=== PATIENT | female | born 1930 | race Caucasian/White ===

== ENCOUNTER 2016-06-19 23:41 | Emergency (ER) | payer MEDICARE, OTHER ==
[~2016-06-19] VITALS: Ht 167.6 cm; Wt 73.0 kg
[~2016-06-19 23:41] MED LIST: ALLP100T PO; AMLO10TA2 PO; ASPI-586 PO; ATOR10TA PO; BACI1TAB3 PO; CALC625T66 PO; CHOL500050 PO; ESCI5TAB PO; FEBU40TA PO; FENO145T2 PO; FLUT9.9S NS; FOLI1TAB6 PO; HYDR-3922 PO; INDO25CA PO; INUL1TAB3 PO; LVT.1T PO; OMEG-109 PO; OXYB10TA PO; VALS1TAB14 PO; VALS320T8 PO
--- OUTSIDE RECORDS SUMMARY | 2016-06-19 23:47 | XMS REPORT | Continuity of Care Document ---
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 Role Phone TITO FUENTES MD PCP Insurance Providers Payer Name Policy Number Subscriber Name Relationship s Medicare [id number] Melody Null 18 Self / Same As Patient For Life [id number] [place] 01 Advance Directives Directive Response Recorded Date/Time Advance Directives Yes 04/08/16 10:08pm Health Care Power of Composition Professor [facility] in [place]--Twila Malave 04/08 10:08pm Organ Donor No 04/08/16 10:08pm Resuscitation Status Full Code 04/08/16 10:08pm Chief Complaint and Reason for Visit Chief Complaint CHEST PAIN Reason for Visit Chest pain Hypertensive urgency Problems Active Problems Medical Problem Onset Date Status Chest pain Unknown Acute Headache Unknown Acute Hypertensive urgency Unknown Acute Medications Current Home Medications Medication Dose Units Route Directions Days/Qty Instructions Start Date Levothyroxine Sodium 100 Mcg 1 Each Oral Daily 12/22/12 Fenofibrate 145 Mg 1 Each Oral Daily 12/22/12 Escitalopram Oxalate 5 Mg 1 Each Oral Daily 12/22/12 Folic Acid/Mv,Fe,Other Min 1 Each 1 Each Oral 12/22/12 Oxybutynin Chloride 10 Mg 10 Mg Oral Daily 12/22/12 Febuxostat 40 Mg 40 Mg Oral Daily 04/08/16 Valsartan/Hydrochlorothiazide 1 Each 1 Each Oral Daily 04/08/16 Bacillus Coagulans 1 Each 1 Each Oral Daily 04/08/16 Inulin/Chromium Picolinate 1 Each 1 Each Oral Daily 04/08/16 [place]-3 Fatty Acids/Fish Oil 1 Each 1 Each Oral Twice A Day 04/08/16 Cholecalciferol (Vitamin D3) 5,000 Unit 5,000 Unit Oral Daily Fluticasone Propionate 9.9 Ml 9.9 Ml Nasal As Needed 04/08/16 Hydralazine Hcl 10 Mg 10 Mg Oral Give Every 6 Hr On Schedule 120 04/09 Amlodipine Besylate 10 Mg 10 Mg Oral Daily@1800 30 04/09/16 Aspirin 81 Mg 81 Mg Oral Daily 90 04/09/16 Past Home Medications Medication Directions Ordered Status Valsartan 320 Mg Tablet, 1 Each Oral Daily 12/22/12 Discontinued Allopurinol 100 Mg Tablet, 1 Tab Oral Daily 12/22/12 Discontinued Calcium Polycarbophil 625 Mg Tablet, 625 Mg Oral 12/22/12 Discontinued Indomethacin 25 Mg Capsule, 25 Mg Oral As Needed 12/22/12 Discontinued Atorvastatin Calcium 10 Mg Tablet, 10 Mg Oral Bedtime 03/25/15 Discontinued Social History Social History Problem Response Recorded Date/Time Alcohol Use Denies Use 03/25/2015 11:26pm Recreational Drug Use No 03/25/2015 11:26pm Recent Foreign Travel No 04/08/2016 10:10pm Recent Infectious Disease Exposure No 04/08/2016 10:10pm Hospitalization with Isolation Denies 04/09/2016 12:45pm Sexually Transmitted Disease No 04/08/2016 10:25pm Smoking Status Never a Smoker 04/08/2016 10:40pm Recent Hopitalizations No 04/08/2016 10:25pm Sexually Transmitted Disease No 04/08/2016 10:25pm Hospitalization with Isolation Denies 04/09/2016 12:45pm Query Response Start Date Stop Date Smoking Status Never a Smoker Hospital Discharge Instructions Patient Instructions Physician Instructions Prescription: Transmitted to Pharmacy ([facility]) Patient Instructions: APPT WITH [facility] IN THE NEXT 10-14 DAYS Resume Normal Activity: Yes Discharge Diet: Low Sodium Diet Drink 6-8 Glasses of Fluid/Day: Yes Driving Instructions: You May Drive Return to The Hospital For: ANY CONCERN FOR WORSENING BLOOD PRESSURE, HEADACHE, CHEST PAIN, OR CONCERN FOR LIFETHREATENING ILLNESS OR INJURY Symptoms to Reoprt to : Pain Increased, Pain/Pressure in Chest, Pain/Pressure in Shoulder, Shortness of Breath For Problems or Questions: Contact Your Physician, Go to Emergency Room Care Plan Patient Instructions:: APPT WITH [facility] IN THE NEXT 10-14 DAYS Plan of Care Discharge Date 04/09/16 11:55am Disposition 01 HOME, SELF-CARE Instructions/Education Provided Malignant Hypertension (DC) Prescriptions See Medication Section Referrals [facility] (Unspecified) - 1 Week Reason(s) for Referral: Chest pain Hypertensive urgency Additional Instructions/Education [facility] THURSD[facility] AT [facility] PLEASE CHECK IN AT 7:30 AM Care Plan and Goals See Discharge Instructions Section Functional Status Query Response Date Recorded Patient Orientation Person Place Time Situation April 09, 2016 12:45pm Comprehension Ability Understands Concepts April 09, 2016 8:00am Allergies, Adverse Reactions, Alerts No known allergies. Immunizations No immunization records. Vital Signs Acute Vital Signs Vital Response Date/Time Temperature (Fahrenheit) 96.9 degrees F (97.6 - 99.5) 04/09/2016 12:39pm Temperature (Calculated Celsius) 36.27839 degrees C (36.4 - 37.5) 04/09/2016 10:25am Temperature Source Tympanic 04/09/2016 12:39pm Pulse Rate (adult) 68 bpm (60 - 90) 04/09/2016 12:39pm Respiratory Rate 18 bpm (12 - 24) 04/09/2016 12:39pm O2 Sat by Pulse Oximetry 98 % (88 - 100) 04/09/2016 12:39pm Blood Pressure 146/63 mm Hg 04/09/2016 12:39pm Blood Pressure Mean 125 mm Hg 04/08/2016 10:05pm Pain Numeric Pain Scale 0-No Pain 04/09/2016 8:00am Pain Intensity 0 04/09/2016 4:00am Height (Feet) 5 feet 04/08/2016 10:04pm Height (Inches) 6.00 inches 04/08/2016 10:04pm Height (Calculated Centimeters) 167.617803 cm 04/08/2016 10:04pm Weight (Pounds) 162 pounds 04/09/2016 6:50am Weight (Ounces) 3.2 oz 04/09/2016 6:50am Weight (Calculated Grams) 64481.683 gm 04/09/2016 6:50am Weight (Calculated Kilograms) 73.026037 kilograms 04/09/2016 6:50am Calculated BMI 26.2 04/08/2016 10:04pm Capillary Refill Capillary Refill Less Than 3 Seconds 04/09/2016 8:00am Results Laboratory Results Test Name Result Units Flags Reference Collection Date/Time Result Date/ Time Comments White Blood Count 5.8 10^3/uL 4.3-11.0 04/09/2016 2:35am 04/09/2016 2: 50am Red Blood Count 4.52 10^6/uL 4.35-5.85 04/09/2016 2:35am 04/09/2016 2: 50am Hemoglobin 12.8 G/DL 11.5-16.0 04/09/2016 2:35am 04/09/2016 2:50am Hematocrit 38 % 35-52 04/09/2016 2:35am 04/09/2016 2:50am Mean Corpuscular Volume 83 FL 80-99 04/09/2016 2:35am 04/09/2016 2: 50am Mean Corpuscular Hemoglobin 28 PG 25-34 04/09/2016 2:35am 04/09/2016 2: 50am Mean Corpuscular Hemoglobin Concent 34 G/DL 32-36 04/09/2016 2:35am 2:50am Red Cell Distribution Width 14.4 % 10.0-14.5 04/09/2016 2:35am 2015 2:50am Platelet Count 156 10^3/uL 130-400 04/09/2016 2:35am 04/09/2016 2:50am Mean Platelet Volume 9.4 FL 7.4-10.4 04/09/2016 2:35am 04/09/2016 2: 50am Neutrophils (%) (Auto) 62 % 42-75 04/09/2016 2:35am 04/09/2016 2:50am Lymphocytes (%) (Auto) 28 % 12-44 04/09/2016 2:35am 04/09/2016 2:50am Monocytes (%) (Auto) 7 % 0-12 04/09/2016 2:35am 04/09/2016 2:50am Eosinophils (%) (Auto) 3 % 0-10 04/09/2016 2:35am 04/09/2016 2:50am Basophils (%) (Auto) 0 % 0-10 04/09/2016 2:35am 04/09/2016 2:50am Neutrophils # (Auto) 3.6 X 10^3 1.8-7.8 04/09/2016 2:35am 04/09/2016 2: 50am Lymphocytes # (Auto) 1.6 X 10^3 1.0-4.0 04/09/2016 2:35am 04/09/2016 2: 50am Monocytes # (Auto) 0.4 X 10^3 0.0-1.0 04/09/2016 2:35am 04/09/2016 2: 50am Eosinophils # (Auto) 0.2 10^3/uL 0.0-0.3 04/09/2016 2:35am 04/09/2016 2 :50am Basophils # (Auto) 0.0 10^3/uL 0.0-0.1 04/09/2016 2:35am 04/09/2016 2: 50am Prothrombin Time 12.6 SEC 12.2-14.7 04/08/2016 8:36pm 04/08/2016 8: 56pm INR Comment 1.0 0.8-1.4 04/08/2016 8:36pm 04/08/2016 8:56pm INTERPRETIVE DATA SUGGESTED THERAPEUTIC RANGE FOR INR'S: VENOUS THROMBOSIS, PULMONARY EMBOLISM, OR PREVENTION OF SYSTEMIC EMBOLISM (EG. IN ATRIAL FIBRILLATION): 2.0 - 3.0 MECHANICAL PROSTHETIC HEART VALVES: 2.5 - 3.5* *NOTE: INR'S UP TO 4.5 MAY BE NECESSARY IN SELECTED GROUPS OF HIGH RISK PATIENTS. [employer] CONSENSUS CONFERENCE ON ANTITHROMBOTIC THERAPY (2000). Activated Partial Thromboplast Time 26 SEC 24-35 04/08/2016 8:36pm 8:56pm Sodium Level 132 MMOL/L L 135-145 04/09/2016 2:35am 04/09/2016 3:11am Potassium Level 4.3 MMOL/L 3.6-5.0 04/09/2016 2:35am 04/09/2016 3:11am Chloride Level 100 MMOL/L 98-107 04/09/2016 2:35am 04/09/2016 3:11am Carbon Dioxide Level 22 MMOL/L 21-32 04/09/2016 2:35am 04/09/2016 3: 11am Anion Gap 10 MMOL/L 5-14 04/09/2016 2:35am 04/09/2016 3:11am Blood Urea Nitrogen 33 MG/DL H 7-18 04/09/2016 2:35am 04/09/2016 3:11am Creatinine 1.19 MG/DL 0.60-1.30 04/09/2016 2:35am 04/09/2016 3:11am BUN/Creatinine Ratio 28 04/09/2016 2:35am 04/09/2016 3:11am Estimat Glomerular Filtration Rate 43 04/09/2016 2:35am 04/09/2016 3:11am GFR INTERPRETIVE DATA UNITS FOR ESTIMATED GFR (eGFR): mL/min/1.73 M2 REFERENCE RANGE FOR ESTIMATED GFR (eGFR) eGFR NORMAL eGFR >60 MODERATELY DECREASED eGFR 30-59 SEVERLY DECREASED eGFR 15-29 KIDNEY FAILURE <15 (OR DIALYSIS) Glucose Level 126 MG/DL H 70-105 04/09/2016 2:35am 04/09/2016 3:11am Calcium Level 9.3 MG/DL 8.5-10.1 04/09/2016 2:35am 04/09/2016 3:11am Phosphorus Level 3.4 MG/DL 2.3-4.7 04/09/2016 2:35am 04/09/2016 3:11am Magnesium Level 2.1 MG/DL 1.8-2.4 04/09/2016 2:35am 04/09/2016 3:11am Total Bilirubin 0.8 MG/DL 0.1-1.0 04/08/2016 8:36pm 04/08/2016 9:06pm Alkaline Phosphatase 31 U/L L 40-136 04/08/2016 8:36pm 04/08/2016 9:06pm Aspartate Amino Transf (AST/SGOT) 35 U/L H 5-34 04/08/2016 8:36pm 2015 9:06pm Alanine Aminotransferase (ALT/SGPT) 23 U/L 0-55 04/08/2016 8:36pm 04/08 9:06pm Troponin I < 0.30 NG/ML <0.30 04/08/2016 8:36pm 04/08/2016 9:12pm Troponin I < 0.30 NG/ML <0.30 04/09/2016 2:35am 04/09/2016 3:11am B-Type Natriuretic Peptide 61.3 PG/ML <100.0 04/08/2016 8:36pm 2015 9:13pm Total Protein 7.5 G/DL 6.4-8.2 04/08/2016 8:36pm 04/08/2016 9:06pm Albumin 4.5 G/DL 3.2-4.5 04/08/2016 8:36pm 04/08/2016 9:06pm Lipase 14 U/L 8-78 04/08/2016 8:36pm 04/08/2016 9:06pm Procedures Procedure Status Date Provider(s) Tracing only of electrocardiogram Active 04/08/16 LANDEN SUAZO MD Tracing only of electrocardiogram Active 04/09/16 TITO FUENTES MD Encounters Encounter Location Arrival/Admit Date Discharge/Depart Date Attending Provider Discharged Inpatient (obs) [facility] 04/08/16 9:41pm 11:55am TITO FUENTES MD Recent Diagnosis Chest pain Hypertensive urgency
[2016-06-20 01:02] LABS: BILIRUBIN,URINE NEGATIVE (NEGATIVE); KETONES,URINE NEGATIVE (NEGATIVE); LEUKOCYTE ESTERASE ,URINE 1+ (NEGATIVE); NITRITE,URINE NEGATIVE (NEGATIVE); PH,URINE 7 (5-9); PROTEIN,URINE NEGATIVE (NEGATIVE); UROBILINOGEN,URINE NORMAL (NORMAL)
[2016-06-20 01:09] LABS: WBC,URINE RARE /HPF
[2016-06-20] MEDS ORDERED: LIDOCAINE/EPI 1%-1:100,000 (XYLOCAINE) 20ML ONE (01:35)
[2016-06-20] MEDS ORDERED: LIDOCAINE 1% INJ 20 ML (XYLOCAINE) VIAL ONE (01:41)
[2016-06-20] MEDS ORDERED: SULF1TAB35 PO (02:23)
--- NOTE | 2016-06-20 02:24 | ED Fall/Injury ---
General Chief Complaint: Trauma-Non Activation Stated Complaint: FALL-HEAD LAC Nursing Triage Note: fall Source: patient, EMS Exam Limitations: no limitations History of Present Illness Time seen by provider: 23:45 Initial Comments This pleasant 85-year-old woman presents to the emergency room via EMS after falling in her home and lacerating her scalp. She has a very large flap laceration on the left parietal scalp. She was trying to walk in her home in the dark when she bumped into the wall. She then fell against the sharp edge of the door which caused the injury. She denies any loss of consciousness. There was no prodrome prior to the injury. She is not up-to-date on her tetanus immunization. The wound was dressed by EMS. Occurred: just prior to arrival Allergies and Home Medications Allergies Coded Allergies: iodine (Unverified Allergy, Unknown, 06/19/16) Home Medications Amlodipine Besylate 10 Mg Tablet #30 10 MG PO DAILY@1800 Prescribed by: TITO FUENTES on 04/09/16 0752 Aspirin 81 Mg Tablet.dr #90 81 MG PO DAILY Prescribed by: TITO FUENTES on 04/09/16 0752 Bacillus Coagulans 1 Each Tab.chew 1 EACH PO DAILY (Reported) Cholecalciferol (Vitamin D3) 5,000 Unit Capsule 5,000 UNIT PO DAILY (Reported) Escitalopram Oxalate 5 Mg Tablet 1 EACH PO DAILY (Reported) Febuxostat 40 Mg Tablet 40 MG PO DAILY (Reported) Fenofibrate,Micronized 145 Mg Tablet 1 EACH PO DAILY (Reported) Fluticasone Propionate 9.9 Ml [place].susp 9.9 ML NS PRN (Reported) Folic Acid/Mv,Fe,Other Min 1 Each Tablet 1 EACH PO (Reported) Hydralazine HCl 10 Mg Tablet #120 10 MG PO Q6HR Prescribed by: TITO FUENTES on 04/09/16 0752 Inulin/Chromium Picolinate 1 Each Tab.chew 1 EACH PO DAILY (Reported) Levothyroxine Sodium 100 Mcg Tablet 1 EACH PO DAILY (Reported) [place]-3 Fatty Acids/Fish Oil 1 Each Capsule 1 EACH PO BID (Reported) Oxybutynin Chloride 10 Mg Tab.osm.24 10 MG PO DAILY (Reported) Sulfamethoxazole/Trimethoprim 1 Each Tablet #20 1 EACH PO BID Prescribed by: MILTON BLANCO on 06/20/16 0223 Valsartan/Hydrochlorothiazide 1 Each Tablet 1 EACH PO DAILY (Reported) Constitutional: no symptoms reported Eyes: No Symptoms Reported Ears, Nose, Mouth, Throat: no symptoms reported Respiratory: no symptoms reported Cardiovascular: no symptoms reported Gastrointestinal: no symptoms reported Genitourinary: no symptoms reported Musculoskeletal: no symptoms reported Skin: see HPI Psychiatric/Neurological: No Symptoms Reported Past Luszkjf-Penrtc-Vlfzqr Hx Patient Social History Alcohol Use: Denies Use Recreational Drug Use: No Smoking Status: Never a Smoker Recent Foreign Travel: No Contact w/Someone Who Travel: No Recent Infectious Disease Expo: No Recent Hopitalizations: No Immunizations Up To Date Tetanus Booster (TDap): More than 5yrs Date of Pneumonia Vaccine: Jan 18, 2015 Date of Influenza Vaccine: Jan 19, 2016 Seasonal Allergies Seasonal Allergies: Yes (takes shots yearly) Surgeries HX Surgeries: Yes (TVH, Bilat Cataracts, Carpal tunnel bilat, R THR, breast bxs , colonoscopy) Surgeries: Adenoidectomy, Eye Surgery, Hysterectomy, Joint Replacement, Orthopedic, Tonsillectomy Respiratory Hx Respiratory Disorders: No Cardiovascular Hx Cardiac Disorders: Yes Cardiac Disorders: High Cholesterol, Hypertension Neurological Hx Neurological Disorders: Yes (hands and feet NEROPATHY) Neurological Disorders: Neuropathy Reproductive System Hx Reproductive Disorders: No Sexually Transmitted Disease: No Genitourinary Hx Genitourinary Disorders: Yes (Bladder leakage) Gastrointestinal Hx Gastrointestinal Disorders: No Musculoskeletal Hx Musculoskeletal Disorders: Yes Musculoskeletal Disorders: Arthritis, Gout Endocrine Hx Endocrine Disorders: Yes Endocrine Disorders: Hypothyroidsim HEENT HX ENT Disorders: Yes (cataract repair) HEENT Disorders: Cataract Cancer Hx Cancer: No Psychosocial Hx Psychiatric Problems: Yes Behavioral Health Disorders: Depression Integumentary HX Skin/Integumentary Disorder: No Blood Transfusions Hx Blood Disorders: No Adverse Reaction to a Blood Tr: No Family Medical History Significant Family History: Heart Disease, Hypertension, Stroke Family Medial History: Cardiovascular disease 19 FATHER (NE AT 55 YRS OLD) Cataracts G8 BROTHER (VISON PROBLEMS CORNEA TRANSPLANTS/ FUCH SYNDROME) Completed stroke 19 MOTHER (AT 86 YRS OF AGE) Physical Exam Vital Signs Capillary Refill : Less Than 3 Seconds General Appearance: WD/WN no apparent distress HEENT: PERRL/EOMI other (Large flap laceration on the left parietal scalp measuring approximately 16 cm in total length. There is a buttonhole laceration in the middle of the flap measuring about 3 cm.) Neck: non-tender full range of motion supple normal inspection Cardiovascular: regular rate, rhythm no edema no murmur Respiratory: lungs clear normal breath sounds no respiratory distress no accessory muscle use Gastrointestinal: normal bowel sounds non tender soft Back: normal inspection no vertebral tenderness Extremities: non-tender normal inspection no pedal edema Neurologic/Psychiatric: shot blaster II-XII nml as tested no motor/sensory deficits alert normal mood/affect oriented x 3 Skin: normal color warm/dry other (See above) Matt Coma Score Best Eye Response: (4) Open Spontaneously Best Verbal Response: (5) Oriented Best Motor Response: (6) Obeys Commands Matt Total: 15 Laceration Repair #1: Wound Location: Scalp Other Wound Location Left parietal scalp Wound Length (cm): 16 Wound's Depth, Shape: irregular (Semicircular flap), sub Q Wound Explored: foreign body removed (Hair) Irrigated w/ Saline (ccs): 1000 Betadine Prep?: No (Chlorhexidine prep was used due to iodine allergy) Anesthesia: 1% Lidocaine, Lidocaine w/ Epi Volume Anesthetic (ccs): 12 Wound Debrided: minimal (Hair removed from the wound) Staple Repair: Stapler 35W Progress The outer edge of the large laceration was anesthetized with lidocaine with epinephrine. The flap was anesthetized with one percent lidocaine without epinephrine. The skin surface was cleansed with chlorhexidine wipes. Hair was carefully extracted from the wound. The flap was approximated with 23 shashi with good results. Laceration Repair #2: Wound Location: Scalp Other Wound Location Buttonhole within the large flap on the left parietal scalp Wound Length (cm): 3 Wound's Depth, Shape: sub Q Wound Explored: foreign body removed (Hair) Betadine Prep?: No (Chlorhexidine wipes were used) Wound Debrided: minimal (Removal of hair) Staple Repair: Stapler 35W Progress Wound was irrigated along with the flap wound. Chlorhexidine was used to prep the skin. 2 shashi were used to approximate this buttonhole wound. Progress/Results/Core Measures Results/Orders Lab Results Laboratory Tests Test 06/20/16 00:55 Range/Units Urine Amorphous Sediment FEW MARJ PHOSPHATE H /LPF Urine Bacteria TRACE /HPF Urine Bilirubin NEGATIVE NEGATIVE Urine Casts NONE /LPF Urine Clarity CLEAR Urine Color YELLOW Urine Crystals PRESENT H /LPF Urine Culture Indicated NO Urine Glucose (UA) NEGATIVE NEGATIVE Urine Ketones NEGATIVE NEGATIVE Urine Leukocyte Esterase 1+ H NEGATIVE Urine Mucus NEGATIVE /LPF Urine Nitrite NEGATIVE NEGATIVE Urine Protein NEGATIVE NEGATIVE Urine RBC NONE /HPF Urine RBC (Auto) 1+ H NEGATIVE Urine Specific [place] 1.010 L 1.016-1.022 Urine Squamous Epithelial Cells 2-5 /HPF Urine Urobilinogen NORMAL NORMAL MG/DL Urine WBC RARE /HPF Urine pH 7 5-9 My Orders Orders-MILTON RUCKER MD Ua Culture If Indicated (06/19/16 23:45) Ct Head/Cervical Spine Wo (06/20/16 00:01) Lidocaine/Epi 1% 1:100,000 (Xylocaine /E (06/20/16 01:35) Lidocaine 1% Injection (Xylocaine 1% Inj (06/20/16 01:41) Dipht,Pertuss(Acell),Tet Adult (Boostrix (06/20/16 02:30) Sulfamethoxazole/Trimet Ds Tab (Bactrim (06/20/16 02:30) Vaccine Administration Single (06/19/16 ) Medications Given in ED Vital Signs/I&O Blood Pressure Mean: 108 Progress Note : Progress Note Wound was anesthetized on the outer edge with lidocaine with epinephrine and the flap was anesthetized with regular lidocaine. Wound was irrigated heavily with approximately 1 L of normal saline. Hair was removed from the wound. Flap wound and button hole were approximated with shashi. Patient tolerated the procedure well. Bactrim was given for infection prophylaxis. Boostrix tetanus immunization was administered. Diagnostic Imaging Diagonstic Imaging: CT Plain Films/CT/US/NM/MRI: c-spine, head Comments CT head and cervical spine viewed by ak. Stat Rad report reviewed. There is no acute intracranial injury or skull fracture. Chronic changes noted. Soft tissue injury on the left superior parietal scalp is noted. Cervical spine demonstrated no acute injury. Departure Impression Impression: Primary Impression: Scalp laceration Qualified Code: S01.01XA - Laceration without foreign body of scalp, initial encounter Additional Impression: Fall from standing Qualified Code: W19.XXXA - Unspecified fall, initial encounter Disposition: 01 HOME, SELF-CARE Condition: Improved Departure-Patient Inst. Decision time for Depature: 02:00 Referrals: TITO FUENTES MD (PCP/Family) Primary Care Physician Patient Instructions: Laceration Repair With [place] (DC) Add. Discharge Instructions: Keep your wound clean and dry except for normal showering. Monitor for signs of infection such as increasing redness, increasing pain, increasing swelling, puslike drainage or fever. Return to the emergency room promptly if you notice any of these problems. You may return to the emergency room at any time for a wound check. Have your shashi removed in 8-10 days. Take Tylenol up to 1000 mg every 6 hours as needed for pain. Complete your antibiotics as prescribed. All discharge instructions reviewed with patient and/or family. Voiced understanding. Scripts Sulfamethoxazole/Trimethoprim (Bactrim Ds Tablet)1 Each Tablet1 Each PO BID #20 TAB Prov:MILTON RUCKER MD 06/20/16 Copy Copies To 1: TITO FUENTES MD, JOSHUA T MD Jun 20, 2016 02:24 Progress Note Wound was anesthetized on the outer edge with lidocaine with epinephrine and the flap was anesthetized with regular lidocaine. Wound was irrigated heavily with approximately 1 L of normal saline. Care was Wound. Flap wound and blood and all were approximated with shashi. Patient tolerated the procedure well. Bactrim was given for infection prophylaxis. Boostrix tetanus immunization was administered. Diagnostic Imaging Diagonstic Imaging: CT Plain Films/CT/US/NM/MRI: c-spine, head Comments CT head and cervical spine viewed by ak. Stat Rad report reviewed. There is no acute intracranial injury or skull fracture. Chronic changes noted. Soft tissue injury on the left superior parietal scalp is noted. Cervical spine demonstrated no acute injury. There was incidental finding of a small 3.5 mm noncalcified left upper lobe pulmonary nodule. Departure Impression Impression: Primary Impression: Scalp laceration Qualified Code: S01.01XA - Laceration without foreign body of scalp, initial encounter Additional Impressions: Fall from standing Qualified Code: W19.XXXA - Unspecified fall, initial encounter Pulmonary nodule Disposition: HOME, SELF-CARE Condition: Improved Departure-Patient Inst. Decision time for Depature: 02:00 Referrals: TITO FUENTES MD (PCP/Family) Primary Care Physician Patient Instructions: Laceration Repair With Shashi (DC) Add. Discharge Instructions: Keep your wound clean and dry except for normal showering. Monitor for signs of infection such as increasing redness, increasing pain, increasing swelling, puslike drainage or fever. Return to the emergency room promptly if you notice any of these problems. You may return to the emergency room at any time for a wound check. Have your shashi removed in 8-10 days. Take Tylenol up to 1000 mg every 6 hours as needed for pain. Complete your antibiotics as prescribed. All discharge instructions reviewed with patient and/or family. Voiced understanding. Scripts Sulfamethoxazole/Trimethoprim (Bactrim Ds Tablet)1 Each Tablet1 Each PO BID #20 TAB Prov:MILTON RUCKER MD 06/20/16 Copy Copies To 1: TITO FUENTES MD, JOSHUA T MD Jun 20, 2016 02:24
[2016-06-20] MEDS ORDERED: TETANUS,DIPTH,PERTUSS P/F (BOOSTRIX) 0.5 ML VIAL IM ONE (02:30)
[2016-06-20] MEDS ORDERED: TRIM/SULFAMETH 160/800 (SEPTRA DS) TAB PO ONE (02:30)
[2016-06-20 03:10] VITALS: BP 130/70
--- NOTE | 2016-06-20 06:53 | Diagnostic Imaging Report ---
PROCEDURE: CT head and CT cervical spine without contrast. TECHNIQUE: Multiple contiguous axial images were obtained through the brain and cervical spine without the use of intravenous contrast. Sagittal and coronal reformations through the cervical spine were then performed. INDICATION: Fall. Lacerations. No priors. CT head: There is no intracranial hemorrhage, hydrocephalus, edema, mass, or mass effect. Left high posterior parietal scalp irregularities noted. The underlying calvarium showed no gross deformity. No hemo-sinus. The mastoids clear. CT cervical spine: There is severe mayes cervical degenerative changes involving the discs, endplates, uncovertebral joints, and facets. Advanced hypertrophic degenerative disease likely accounts for slight retrolisthesis of C5 on C6 grade 1 of 2 to 3 mm. There is partly calcified bulky pannus posterior to the dens. Degenerative changes result in moderate canal stenoses at C3-C4, C4-C5, C5-C6, and C6-C7. C5-C6 stenosis probably severe. Multilevel foraminal stenoses are present, moderate/severe bilaterally C3-C4, moderate bilaterally C4-C5, moderate/severe greater left C5-C6, mild/ moderate bilateral C6-C7; however, no cervical fracture or dislocation. There are chronic vascular calcifications of the carotids. The skull base appeared intact. IMPRESSION: CT head: Scalp irregularities but no visualized fracture deformity or acute intracerebral pathology. 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 Reversal of lordosis and slight listhesis likely secondary to the degenerative disease. Agree with the preliminary. Dictated by: Dictated on workstation # [id number]
== END 2016-06-20 03:10 | disposition home or self-care (01) ==
LOC: EDUNIT# 23:41 → ER 23:43
DX: S01.01XA Laceration without foreign body of scalp, initial encounter (principal); Z23 Encounter for immunization; M47.812 Spondylosis without myelopathy or radiculopathy, cervical region; M48.02 Spinal stenosis, cervical region; I10 Essential (primary) hypertension; Z79.82 Long term (current) use of aspirin; Z79.899 Other long term (current) drug therapy; W18.09XA Striking against other object with subsequent fall, initial encounter; Y92.009 Unspecified place in unspecified non-institutional (private) residence as the place of occurrence of the external cause; Y99.8 Other external cause status
CPT/HCPCS: 70450; 72125; 81000; 90471; 90715

== ENCOUNTER → 2016-07-08 | Outpatient (CLI) | payer MEDICARE, OTHER ==
[~2016-07-08] MED LIST changes: +SULF1TAB35 PO
--- OUTSIDE RECORDS SUMMARY | 2016-07-08 10:08 | XMS REPORT | Continuity of Care Document ---
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 [place]--Twila Malave 04/08 10:08pm Organ Donor No 04/08/16 [...] 1 Each 1 Each Oral Daily 04/08/16 [place]-3 Fatty Acids/Fish Oil 1 Each 1 Each [...] [facility]) Patient Instructions: APPT WITH [facility] IN THE NEXT 10-14 DAYS Resume Normal [...] Room Care Plan Patient Instructions:: APPT WITH [facility] IN THE NEXT 10-14 DAYS Plan of Care Discharge Date 04/09/16 11:55am Disposition 01 HOME, SELF-CARE Instructions/Education Provided Malignant Hypertension (DC) Prescriptions See Medication Section Referrals [facility] (Unspecified) - 1 Week Reason(s) for Referral: [...] - 99.5) 04/09/2016 12:39pm Temperature (Calculated Celsius) 36.33907 degrees C (36.4 - 37.5) 04/09/2016 10:25am [...] 6.00 inches 04/08/2016 10:04pm Height (Calculated Centimeters) 167.665863 cm 04/08/2016 10:04pm Weight (Pounds) 162 pounds 04/09/2016 6:50am Weight (Ounces) 3.2 oz 04/09/2016 6:50am Weight (Calculated Grams) 04390.683 gm 04/09/2016 6:50am Weight (Calculated Kilograms) 73.362434 kilograms 04/09/2016 6:50am Calculated BMI 26.2 04/08/2016 [...] SELECTED GROUPS OF HIGH RISK PATIENTS. [employer] CONSENSUS CONFERENCE ON [...] Date Attending Provider Discharged Inpatient (obs) [facility] 04/08/16 9:41pm 11:55am TITO FUENTES MD Recent Diagnosis Chest pain Hypertensive urgency
[2016-07-08 10:36] LABS: ALBUMIN 4.1 G/DL (3.2-4.5); BILIRUBIN,DIRECT 0.2 MG/DL (0.0-0.3); BILIRUBIN,INDIRECT 0.2 MG/DL; BILIRUBIN,TOTAL 0.4 MG/DL (0.1-1.0); TOTAL PROTEIN 7.2 G/DL (6.4-8.2)
== END ==
LOC: LAB 10:04
PROVIDERS: ATTEND Physician Assistant
DX: E78.2 Mixed hyperlipidemia (principal); I10 Essential (primary) hypertension
CPT/HCPCS: 36415; 80061; 80076

== ENCOUNTER → 2016-11-11 | Outpatient (CLI) | payer MEDICARE, OTHER ==
[2016-11-11 10:59] LABS: ALBUMIN 4.4 GM/DL (3.2-4.5); BILIRUBIN,DIRECT 0.3 MG/DL (0.0-0.3); BILIRUBIN,INDIRECT 0.4 MG/DL; BILIRUBIN,TOTAL 0.7 MG/DL (0.1-1.0); TOTAL PROTEIN 7.3 GM/DL (6.4-8.2)
== END ==
LOC: LAB 10:27
PROVIDERS: ATTEND Physician Assistant
DX: I10 Essential (primary) hypertension (principal); E78.2 Mixed hyperlipidemia
CPT/HCPCS: 36415; 80061; 80076

== ENCOUNTER → 2018-10-15 | Outpatient (CLI) | payer MEDICARE, OTHER ==
[~2018-10-15] MED LIST changes: -AMLO10TA2 PO; +AMLO10TA7 PO
--- NOTE | 2018-10-15 13:41 | Diagnostic Imaging Report ---
EXAM: RIGHT UPPER QUADRANT ULTRASOUND DATE: October 15, 2018. COMPARISON: CT abdomen and pelvis August 20, 2015. Upper quadrant ultrasound August 15, 2015. INDICATION: 88-year-old female, right upper quadrant abdominal pain. PROCEDURE: Two-dimensional grayscale and color doppler ultrasound examination of the right upper quadrant is performed. FINDINGS: Liver: The liver is of normal size and echotexture without solid or cystic masses. Bile ducts and gallbladder: There is no pericholecystic fluid, gallbladder wall thickening or gallstones. The gallbladder wall measures 0.2 cm. There is no intrahepatic or extrahepatic biliary ductal dilation. The common bile duct measures 0.7 cm. Right kidney: Unremarkable right kidney. No hydronephrosis. The right kidney measures 10.7 cm x 4.3 cm x 5.1 cm. Pancreas: The pancreas is not well seen. IMPRESSION: 1. No evidence of cholelithiasis or acute cholecystitis. 2. No biliary ductal dilation. 3. Unremarkable sonographic appearance of the liver. 4. The pancreas is not well seen. Dictated by: Dictated on workstation # [id number]
== END ==
LOC: RAD 10:33
PROVIDERS: ATTEND Nurse Practitioner Family
DX: R10.11 Right upper quadrant pain (principal)
CPT/HCPCS: 76705

== ENCOUNTER → 2018-11-09 | Outpatient (CLI) | payer MEDICARE, OTHER ==
[~2018-11-09] MED LIST changes: +CATHETER FLUSH 10 ML SYR IV PRN
--- NOTE | 2018-11-09 14:37 | Diagnostic Imaging Report ---
Nuclear medicine hepatobiliary scan. Indication: Bone pain. This study was performed following administration of 5.47 mCi of 99 technetium Choletec. One can of Ensure was also utilized for the evaluation of the ejection fraction. There are no prior nuclear medicine studies available for comparison. The gallbladder ultrasound performed 10/15/2018 failed to show any cholelithiasis or acute cholecystitis. On this exam, there is uptake of the radiotracer above the gallbladder before 30 minutes. This would weigh against a diagnosis of acute cholecystitis. There is also extension of the radiotracer into the small bowel indicating that the common bile duct is not obstructed. However, the ejection fraction is only 1.9% (normal greater than 35%). The reason for the markedly diminished ejection fraction is not certain but could be secondary to biliary dyskinesia. Clinical follow up is recommended. Impression: 1. There is no evidence for acute cholecystitis or for obstruction of the common bile duct. 2. There is marked reduction in ejection fraction. Dictated by: Dictated on workstation # [id number]
== END ==
LOC: CARD 11-08 09:41
PROVIDERS: ATTEND Nurse Practitioner Family
DX: M89.8X9 Other specified disorders of bone, unspecified site (principal); R10.9 Unspecified abdominal pain
CPT/HCPCS: 78227

== ENCOUNTER 2018-11-26 10:00 | Outpatient (CLI) | payer MEDICARE, OTHER ==
[~2018-11-26] VITALS: Ht 167.6 cm; Wt 73.1 kg
[~2018-11-26 10:00] MED LIST changes: -CATHETER FLUSH 10 ML SYR IV PRN; +CETI10TA17 PO; +CYAN250010 PO; +ESCI10TA55 PO; +LEVO100T7 PO; +NFVALS90T PO
[2018-12-02] MEDS ORDERED: ACHD5005 PO (15:22)
[2018-12-02] MEDS ORDERED: DOCU-143 PO (15:22)
== END 2018-11-26 12:14 | disposition home or self-care (01) ==
LOC: PREOP 10:00
PROVIDERS: ATTEND Surgery
DX: Z01.818 Encounter for other preprocedural examination (principal)

== ENCOUNTER 2018-12-02 10:58 | Day surgery (SDC) | payer MEDICARE, OTHER ==
[2018-12-02] VITALS (8 sets, daily range): BP systolic 125–167; BP diastolic 48–64
[~2018-12-02] VITALS: Ht 167.6 cm; Wt 73.1 kg
[2018-12-02] MEDS ORDERED: LACTATED RINGERS 1,000 ML IV PRN (11:06)
[2018-12-02] MEDS ORDERED: CLINDAMYCIN 600 MG/50 ML IVPB 50 ML IV ONE (11:15)
[2018-12-02] MEDS ORDERED: CATHETER FLUSH 10 ML SYR IV PRN (11:30)
[2018-12-02] MEDS ORDERED: BUP/EPI 0.5% 1:200,000 (MARCAINE) 10ML VIAL IJ ONE (12:43)
[2018-12-02] MEDS ORDERED: LIDOCAINE PF 2% 5 ML (XYLOCAINE) VIAL ONE (12:48)
[2018-12-02] MEDS ORDERED: ONDANSETRON 4 MG/2 ML (SDV) Z0FRAN ONE (12:48)
[2018-12-02] MEDS ORDERED: proPOfol 200 MG/20 ML (DIPRIVAN) VIAL IV ONE (12:48)
[2018-12-02] MEDS ORDERED: ROCURONIUM 10 MG/ML 5 ML SYRINGE IV ONE (12:48)
[2018-12-02] MEDS ORDERED: fentaNYL INJECTION 100 MCG/2 ML AMP ONE (12:48)
[2018-12-02] MEDS ORDERED: SEVOFLURANE (ULTANE) 15 ML INHAL SOLN ONE ×5 (12:49→15:07)
[2018-12-02] MEDS ORDERED: DEXAMETHASONE 10 MG/ML (DECADRON) 1 ML VIAL ONE (12:49)
--- NOTE | 2018-12-02 13:55 | Progress Note-Pre Operative ---
Pre-Operative Progress Note H&P Reviewed The H&P was reviewed, patient examined and no changes noted. Date Seen by Provider: Dec 02, 2018 Time Seen by Provider: 13:55 Date H&P Reviewed: Dec 02, 2018 Time H&P Reviewed: 13:55 Pre-Operative Diagnosis: biliary dyskinesia GINA SCHNEIDER DO Dec 02, 2018 13:55
[2018-12-02] MEDS ORDERED: GLYCOPYRROLATE 0.2 MG/ML (ROBINUL) 2 ML VIAL ONE (14:30)
[2018-12-02] MEDS ORDERED: NEOSTIGMINE 3 MG/3 ML VIAL ONE (14:30)
[2018-12-02] MEDS ORDERED: KETOROLAC 30 MG/ML VIAL ONE (15:03)
[2018-12-02] MEDS ORDERED: MEPERIDINE (DEMEROL) INJ 50 MG/ML IVP ONE (15:15)
[2018-12-02] MEDS ORDERED: morphine INJ 10 MG/ML 1ML (SYR OR VIAL) IVP ONE (15:15)
[2018-12-02] MEDS ORDERED: ONDANSETRON 4 MG/2 ML (SDV) Z0FRAN IVP PRN (15:15)
--- NOTE | 2018-12-02 15:20 | Progress Note-Post Operative ---
Post-Operative Progess Note Surgeon (s)/Guide Cruise (s) Surgeon IGNA SCHNEIDER DO Guide Cruise: Dr. Westbrook Pre-Operative Diagnosis biliary dyskinesia Post-Operative Diagnosis same Procedure & Operative Findings Date of Procedure 12/02/18 Procedure Performed/Findings lap red c ioc Anesthesia Type general Estimated Blood Loss Estimated blood loss (mL): min Specimens/Packing Specimens Removed gallbladder GINA SCHNEIDER DO Dec 02, 2018 15:20
[2018-12-02] MEDS ORDERED: ACHD5005 PO (15:22)
[2018-12-02] MEDS ORDERED: DOCU-143 PO (15:22)
--- NOTE | 2018-12-02 15:24 | Discharge Inst-Simple/Standard ---
Discharge Inst-Standard Discharge Medications New, Converted or Re-Newed RX: RX on Chart Patient Instructions/Follow Up Plan of Care/Instructions/FU: 2-3 weeks Karley Activity as Tolerated: No Discharge Diet: Regular Diet Other Inst to Patient Follow up Appt: Make appointment for 2-3 weeks. Instructions: No lifting greater than 10 pounds. No strenuous activity. May shower in 24 hours, no tub bath or soaking. Use incentive spirometer at home as directed. No Smoking Skin/Wound Care: You have special glue over incisions it will fall off on its own. Symptoms to Report: Appetite Changes, Extremity Discoloration, Numbness/Tingling, Swelling Increased, Bleeding Excessive, Eyesight Changes, Pain Increased, Urine Color Change, Constipation(Persistent), Fever over 101 degree F, Pain/Pressure in c hest, Urinating Difficulty, Cough Up/Vomit Blood, Heart Beat Irreg/Pounding, Pain/Pressure in jaw, Vaginal Bleeding Increase, Cramps in feet or legs, Lightheadedness, Pain/Pressure in shoulder, Diarrhea(Persistent), Memory Changes Suddenly, Questions/Concerns, Weight gain consecutive days, Dizziness/Fainting, Nausea/Vomiting, Shortness of Breath, Weight gain over 2 pounds. If eyes or skin turn yellow notify physician. If questions or concerns contact your physician Or seek help at emergency department. GINA SCHNEIDER DO Dec 02, 2018 15:24
[2018-12-02] MEDS ORDERED: HYDROcodone/APAP 5 MG/325 MG (LORTAB) TAB ONE (16:25)
[2018-12-02] MEDS ORDERED: HYDROcodone/APAP 5 MG/325 MG (LORTAB) TAB PO ONE (16:30)
--- NOTE | 2018-12-02 20:07 | Diagnostic Imaging Report ---
INDICATION: Fluoroscopy for intraoperative cholangiogram. The patient does have abnormal gallbladder ejection fraction. EXAMINATION: Fluoroscopy was provided in the OR during intraoperative cholangiogram. FINDINGS: 7 seconds of fluoroscopy was utilized. Contrast is seen being injected via the cystic duct remnant. Intrahepatic and extrahepatic bile ducts are without evidence of filling defect. Contrast passes into the duodenum. IMPRESSION: Fluoroscopy for intraoperative cholangiogram. Dictated by: Dictated on workstation # [id number]
--- NOTE | 2018-12-03 04:09 | OPERATIVE REPORT ---
DATE OF SERVICE: 12/02/2018 PREOPERATIVE DIAGNOSIS: Biliary dyskinesia. POSTOPERATIVE DIAGNOSIS: Biliary dyskinesia. PROCEDURE: Laparoscopic cholecystectomy with intraoperative cholangiogram. SURGEON: Gina Crandall DO MANUFACTURING ENGINEER CHIEF: Dr. Westbrook, assisted in retraction, dissection and closure. ANESTHESIA: General. ESTIMATED BLOOD LOSS: Minimal. COMPLICATIONS: None. INDICATIONS: The patient is an 88-year-old female found to have biliary dyskinesia. She understands risks and benefits of procedure and wished to proceed with procedure. Consent was signed in the chart. DESCRIPTION OF PROCEDURE: The patient was taken to the operating suite. She was prepped and draped in sterile fashion. Surgical pause was performed. A 12 mm incision was made above the umbilicus and cautery used to dissect down to the fascia, which was then scored, grasped and elevated. A 0 Vicryl was placed in a [id number] fashion for closure at the end of the case. Balloon trocar was inserted in the abdomen and pneumoperitoneum was achieved. Under direct visualization of the laparoscope, a 5 mm trocar was placed in the subxiphoid region and two 5 mm trocars were placed in the right upper quadrant. Gallbladder was grasped, elevated. The cystic duct and cystic artery were dissected out. Clips were placed on the proximal and distal portion of the cystic artery and distal portion of the cystic duct. The cystic duct was then partially transected. Arrow catheter was inserted and cholangiogram was performed. No filling defects. Contrast made its way into the duodenum without difficulty. Catheter was then removed. Clips were placed on the proximal portion of the cystic duct and the duct and the artery was then completely transected. Hook cautery was used to dissect the gallbladder from the gallbladder fossa achieving hemostasis. Once removed, it was placed in an Endobag and removed through 12 mm trocar site. The abdomen was then irrigated and suctioned with copious amounts of irrigation. Hemostasis was achieved. The abdomen was then desufflated, the trocars were removed. The 0 Vicryl placed earlier was then tied and the skin was then closed using 4-0 Monocryl in a subcuticular fashion. The abdomen was then washed and dried and Skin Affix was placed over the incisions. The patient tolerated procedure well without any complications. She was taken to recovery room in stable condition. Job ID: [id number] DocumentID: [id number] Dictated Date: 12/02/2018 21:52:48 Event Marketing Specialist Date: 12/03/2018 04:08:32 Dictated By: GINA CRANDALL DO
== END 2018-12-02 17:05 | disposition home or self-care (01) ==
LOC: SDC 10:58
PROVIDERS: ATTEND Surgery
DX: K81.1 Chronic cholecystitis (principal); K82.8 Other specified diseases of gallbladder; I10 Essential (primary) hypertension; E03.9 Hypothyroidism, unspecified; E78.5 Hyperlipidemia, unspecified; M19.90 Unspecified osteoarthritis, unspecified site; Z88.2 Allergy status to sulfonamides; Z88.0 Allergy status to penicillin; Z88.1 Allergy status to other antibiotic agents; Z79.899 Other long term (current) drug therapy; Z90.710 Acquired absence of both cervix and uterus; Z83.3 Family history of diabetes mellitus; Z82.3 Family history of stroke; Z82.49 Family history of ischemic heart disease and other diseases of the circulatory system; Z83.511 Family history of glaucoma; Z88.8 Allergy status to other drugs, medicaments and biological substances
CPT/HCPCS: 87081

== ENCOUNTER → 2019-01-20 | Outpatient (CLI) | payer MEDICARE, OTHER ==
[~2019-01-20] MED LIST changes: +ACHD5005 PO; +DOCU-143 PO
== END ==
LOC: CARD 12:08
PROVIDERS: ATTEND Nurse Practitioner Family
DX: I35.0 Nonrheumatic aortic (valve) stenosis (principal); I08.0 Rheumatic disorders of both mitral and aortic valves
CPT/HCPCS: 93306

== ENCOUNTER → 2019-05-24 | Outpatient (CLI) | payer MEDICARE, OTHER ==
[~2019-05-24] MED LIST changes: +OXYB10TA29 PO
== END ==
LOC: RAD 09:43
PROVIDERS: ATTEND Internal Medicine Interventional Cardiology
DX: I08.0 Rheumatic disorders of both mitral and aortic valves (principal); I11.9 Hypertensive heart disease without heart failure; I27.20 Pulmonary hypertension, unspecified
CPT/HCPCS: 93306

== ENCOUNTER → 2019-10-06 | Outpatient (CLI) | payer MEDICARE, OTHER ==
--- NOTE | 2019-10-06 12:50 | Diagnostic Imaging Report ---
INDICATION: Left arm pain. TIME OF EXAM: 11:48 AM FINDINGS: There are some degenerative changes of the glenohumeral joint. There is an amorphus calcific density adjacent to the greater tuberosity. This can be seen with calcific tendinitis of the rotator cuff. Acromioclavicular alignment is normal. Acromiohumeral space is normal. No fracture or dislocation is seen. IMPRESSION: Degenerative changes and questionable calcific tendinitis of the rotator cuff. No acute bony abnormality is detected. Dictated by: Dictated on workstation # [id number]
== END ==
LOC: RAD 11:16
PROVIDERS: ATTEND Nurse Practitioner Family
DX: M19.012 Primary osteoarthritis, left shoulder (principal)
CPT/HCPCS: 73030

== ENCOUNTER 2020-07-29 10:40 | Emergency (ER) | payer MEDICARE, OTHER ==
[~2020-07-29] VITALS: Ht 167.7 cm; Wt 72.5 kg
[~2020-07-29 10:40] MED LIST changes: +AMLO-251 PO; -AMLO10TA7 PO; +ESCI-2 PO; -ESCI10TA55 PO
[2020-07-29] MEDS ORDERED: ASPIRIN 81 MG CHEW (CHILDREN'S ASA) ONE (10:53)
[2020-07-29] MEDS ORDERED: ASPIRIN 81 MG CHEW (CHILDREN'S ASA) PO ONE (11:00)
[2020-07-29] MEDS ORDERED: hydrALAZINE (APESOLINE) 20 MG/ML VIAL IV ONE ×2 (11:00→14:00)
[2020-07-29 11:03] LABS: BASOPHILS % (AUTO) 1 % (0-10); EOSINOPHILS # (AUTO) 0.1 10^3/uL (0.0-0.3); EOSINOPHILS % (AUTO) 2 % (0-10); HEMATOCRIT 39 % (35-52); HEMOGLOBIN 13.1 g/dL (11.5-16.0); LYMPHOCYTES # (AUTO) 1.3 10^3/uL (1.0-4.0); LYMPHOCYTES % (AUTO) 24 % (12-44); MEAN CORPUSCULAR HEMOGLOBIN 28 pg (25-34); MEAN CORPUSCULAR HGB CONC 33 g/dL (32-36); MEAN CORPUSCULAR VOLUME 84 fL (80-99); MEAN PLATELET VOLUME 10.7 fL (9.0-12.2); MONOCYTES # (AUTO) 0.6 10^3/uL (0.0-1.0); MONOCYTES % (AUTO) 11 % (0-12); NEUTROPHILS # (AUTO) 3.2 10^3/uL (1.8-7.8); NEUTROPHILS % (AUTO) 61 % (42-75); PLATELET COUNT 202 10^3/uL (130-400); WHITE BLOOD COUNT 5.2 10^3/uL (4.3-11.0)
[2020-07-29 11:10] LABS: PROTHROMBIN TIME PATIENT 13.5 SEC (12.2-14.7)
[2020-07-29 11:12] LABS: POTASSIUM 4.4 MMOL/L (3.6-5.0)
[2020-07-29 11:13] LABS: CALCIUM 9.4 MG/DL (8.5-10.1)
[2020-07-29 11:14] LABS: TOTAL PROTEIN 6.7 GM/DL (6.4-8.2)
[2020-07-29 11:16] LABS: BILIRUBIN,TOTAL 0.6 MG/DL (0.1-1.0)
[2020-07-29 11:18] LABS: CREATININE SERUM 1.15 MG/DL (0.60-1.30)
--- NOTE | 2020-07-29 11:31 | ED Cardiac General ---
History of Present Illness General Chief Complaint: Cardiac/General Problems Stated Complaint: DIZZINESS Nursing Triage Note: PT BROUGHT IN BY [facility] FROM HOME WITH COMPLAINT OF INCREASED DIZZINESS AND CHEST HEAVINESS. Source: patient Exam Limitations: no limitations History of Present Illness Date Seen by Provider: Jul 29, 2020 Time Seen by Provider: 10:48 Initial Comments Here with report of dizziness that started on Thursday and continued on Thursday through today. States she has had waxing and waning periods of these episodes. Thursday it was worse than yesterday was a little better. She was able to walk to get her mail yesterday. This morning she was more off balance and noted her blood pressure was high. EMS was summoned and brought her here. She did complain of some mild chest pressure without pain and states that is gone currently. It only lasted for a little while earlier and she thinks it may have been related to the anxiety of the condition and not heart related. Denies nausea, vomiting, weakness, diaphoresis or breathing problems. Timing/Duration: changing over time, 2-3 days Severity: moderate Location: central (Pressure that was mild and resolved now) Activities at Onset: rest Prior CP/Workup: echocardiography, stress test NTG SL GAMBLING MONITOR: No ASA po GAMBLING MONITOR: No Associated Systoms: No Diaphoresis, No Fever/Chills, No Headaches, No Nausea/Vomiting, No Shortness of Air, No Weakness; Other (Dizziness) Allergies and Home Medications Allergies Coded Allergies: Penicillins (Verified Allergy, Mild, RASH, ITCHING, 11/25/18) Sulfa (Sulfonamide Antibiotics) (Verified Allergy, Mild, RASH, 11/25/18) atorvastatin (Verified Allergy, Mild, GI UPSET, 11/25/18) iodine (Unverified Allergy, Unknown, 06/19/16) Home Medications Amlodipine Besylate 10 Mg Tablet, 10 MG PO DAILY@1800 Prescribed by: TITO FUENTES on 04/09/16 0752 Cetirizine HCl 10 Mg Tablet, 10 MG PO DAILY, (Reported) Cholecalciferol (Vitamin D3) 5,000 Unit Capsule, 5,000 UNIT PO DAILY, (Reported) Cyanocobalamin (Vitamin B-12) 2,500 Mcg Tablet, 2,500 MCG PO DAILY, (Reported) Docusate Sodium 100 Mg Capsule, 100 MG PO BID Prescribed by: GINA SCHNEIDER on 12/02/18 1522 Escitalopram Oxalate 10 Mg Tablet, 10 MG PO DAILY, (Reported) Fenofibrate Nanocrystallized 145 Mg Tablet, 145 MG PO DAILY, (Reported) Fluticasone Propionate 9.9 Ml [place].susp, 9.9 ML NS PRN, (Reported) Hydralazine HCl 10 Mg Tablet, 10 MG PO Q6HR Prescribed by: TITO FUENTES on 04/09/16 0752 Hydrocodone Bit/Acetaminophen 1 Tab Tab, 1 TAB PO Q4-6HR Prescribed by: GINA SCHNEIDER on 12/02/18 1522 Levothyroxine Sodium 100 Mcg Tablet, 100 MCG PO DAILY, (Reported) Oxybutynin Chloride 10 Mg Tab.er.24, 10 MG PO DAILY, (Reported) Valsartan 320 Mg Tab, 320 MG PO DAILY, (Reported) Patient Home Medication List Home Medication List Reviewed: Yes Review of Systems Review of Systems Constitutional: see HPI; No chills, No fever EENTM: No Blurred Vision, No Ear Pain Respiratory: Denies Cough, Denies Shortness of Air Cardiovascular: See HPI; Denies Edema, Denies Irregular Heart Rate Gastrointestinal: Denies Nausea, Denies Vomiting Genitourinary: No Symptoms Reported Musculoskeletal: no symptoms reported Skin: no symptoms reported Psychiatric/Neurological: See HPI All Other Systems Reviewed Negative Unless Noted: Yes Past Drwbagd-Yncoyl-Eablay Hx Past Med/Social Hx: Reviewed Nursing Past Med/Soc Hx Patient Social History Alcohol Use: Denies Use Smoking Status: Never a Smoker 2nd Hand Smoke Exposure: No Recent Infectious Disease Expo: No Recent Hopitalizations: No Immunizations Up To Date Tetanus Booster (TDap): More than 5yrs Date of Pneumonia Vaccine: Jan 18, 2015 Date of Influenza Vaccine: Jan 25, 2018 Seasonal Allergies Seasonal Allergies: No Past Medical History Surgeries: Yes (TVH, Bilat Cataracts, Carpal tunnel bilat, R THR, breast bxs, colonoscopy) Adenoidectomy, Eye Surgery, Hysterectomy, Joint Replacement, Orthopedic, Tonsi llectomy Respiratory: No Currently Using CPAP: No Currently Using BIPAP: No Cardiac: Yes High Cholesterol, Hypertension Neurological: Yes (hands and feet NEROPATHY) Neuropathy Reproductive Disorders: No Sexually Transmitted Disease: No HIV/AIDS: No Genitourinary: No Gastrointestinal: No Musculoskeletal: Yes Arthritis, Gout Endocrine: Yes Hypothyroidsim HEENT: Yes (GLASSES) Cataract Loss of Vision: Denies Hearing Impairment: Denies Cancer: No Psychosocial: Yes Depression Integumentary: No Blood Disorders: No Adverse Reaction/Blood Tranf: No (N/A) Family Medical History Reviewed Nursing Family Hx Cardiovascular disease 19 FATHER ([place] AT 55 YRS OLD) Cataracts G8 BROTHER (VISON PROBLEMS [employer]S/ FUCH SYNDROME) Completed stroke 19 MOTHER (AT 86 YRS OF AGE) Heart Disease, Hypertension, Stroke Physical Exam Vital Signs Vital Signs - First Documented 07/29/20 10:42 Temp 36.1 Pulse 60 Resp 20 B/P (MAP) 190/82 (118) Pulse Ox 97 O2 Delivery Room Air Capillary Refill : Less Than 3 Seconds Height, Weight, BMI Height: 5'6.00" Weight: 161lbs. 3.2oz. 73.201854yu; 25.00 BMI Method:Stated General Appearance: No Apparent Distress, WD/WN Neck: Non Tender, Supple Respiratory: Lungs Clear, Normal Breath Sounds Cardiovascular: Regular Rate, Rhythm, Systolic Murmur (Holosystolic blowing) Gastrointestinal: Non Tender, Soft Extremity: Normal Range of Motion, Non Tender Neurologic/Psychiatric: Alert, Oriented x3 Skin: Normal Color, Warm/Dry Progress/Results/Core Measures Results/Orders Lab Results Laboratory Tests Test 07/29/20 10:57 07/29/20 13:03 Range/Units White Blood Count 5.2 4.3-11.0 10^3/uL Red Blood Count 4.67 3.80-5.11 10^6/uL Hemoglobin 13.1 11.5-16.0 g/dL Hematocrit 39 35-52 % Mean Corpuscular Volume 84 80-99 fL Mean Corpuscular Hemoglobin 28 25-34 pg Mean Corpuscular Hemoglobin Concent 33 32-36 g/dL Red Cell Distribution Width 13.8 10.0-14.5 % Platelet Count 202 130-400 10^3/uL Mean Platelet Volume 10.7 9.0-12.2 fL Immature Granulocyte % (Auto) 0 % Neutrophils (%) (Auto) 61 42-75 % Lymphocytes (%) (Auto) 24 12-44 % Monocytes (%) (Auto) 11 0-12 % Eosinophils (%) (Auto) 2 0-10 % Basophils (%) (Auto) 1 0-10 % Neutrophils # (Auto) 3.2 1.8-7.8 10^3/uL Lymphocytes # (Auto) 1.3 1.0-4.0 10^3/uL Monocytes # (Auto) 0.6 0.0-1.0 10^3/uL Eosinophils # (Auto) 0.1 0.0-0.3 10^3/uL Basophils # (Auto) 0.0 0.0-0.1 10^3/uL Immature Granulocyte # (Auto) 0.0 0.0-0.1 10^3/uL Prothrombin Time 13.5 12.2-14.7 SEC INR Comment 1.0 0.8-1.4 Activated Partial Thromboplast Time 26 24-35 SEC D-Dimer 1.00 H 0.00-0.49 UG/ML Sodium Level 135 135-145 MMOL/L Potassium Level 4.4 3.6-5.0 MMOL/L Chloride Level 103 98-107 MMOL/L Carbon Dioxide Level 18 L 21-32 MMOL/L Anion Gap 14 5-14 MMOL/L Blood Urea Nitrogen 29 H 7-18 MG/DL Creatinine 1.15 0.60-1.30 MG/DL Estimat Glomerular Filtration Rate 44 BUN/Creatinine Ratio 25 Glucose Level 139 H 70-105 MG/DL Calcium Level 9.4 8.5-10.1 MG/DL Corrected Calcium 9.4 8.5-10.1 MG/DL Magnesium Level 2.0 1.6-2.4 MG/DL Total Bilirubin 0.6 0.1-1.0 MG/DL Aspartate Amino Transf (AST/SGOT) 18 5-34 U/L Alanine Aminotransferase (ALT/SGPT) 13 0-55 U/L Alkaline Phosphatase 32 L 40-136 U/L Myoglobin 140.8 H 133.6 H 10.0-92.0 NG/ML Troponin I < 0.028 < 0.028 <0.028 NG/ML Total Protein 6.7 6.4-8.2 GM/DL Albumin 4.0 3.2-4.5 GM/DL My Orders Orders - MARQUIS GANDHI MD Cbc With Automated Diff (07/29/20 10:57) Magnesium (07/29/20 10:57) Chest 1 View, Ap/Pa Only (07/29/20 10:57) Ekg Tracing (07/29/20 10:57) Comprehensive Metabolic Panel (07/29/20 10:57) Myoglobin Serum (07/29/20 10:57) Protime With Inr (07/29/20 10:57) Partial Thromboplastin Time (07/29/20 10:57) O2 (07/29/20 10:57) Monitor-Rhythm Ecg Trace Only (07/29/20 10:57) Lipid Panel (07/30/20 06:00) Ed Iv/Invasive Line Start (07/29/20 10:57) Fibrin Degradation Products (07/29/20 10:57) Troponin I (07/29/20 10:57) Aspirin Chewable Tablet (Baby Aspirin Ch (07/29/20 11:00) Hydralazine Injection (Apresoline Inject (07/29/20 11:00) Aspirin Chewable Tablet (Baby Aspirin Ch (07/29/20 10:53) Ct Head Wo (07/29/20 12:10) Troponin I (07/29/20 12:53) Myoglobin Serum (07/29/20 12:53) Hydralazine Injection (Apresoline Inject (07/29/20 14:00) Hydralazine Injection (Apresoline Inject (07/29/20 13:52) Medications Given in ED Current Medications Medications Dose Ordered Sig/Jania Route Start Time Stop Time Status Last Admin Dose Admin Aspirin 324 mg ONCE ONCE PO 07/29/20 11:00 07/29/20 11:01 DC 07/29/20 11:03 324 MG Hydralazine HCl 10 mg ONCE ONCE IV 07/29/20 11:00 07/29/20 11:01 DC 07/29/20 11:13 10 MG Hydralazine HCl 10 mg ONCE ONCE IV 07/29/20 14:00 07/29/20 14:01 DC 07/29/20 14:01 10 MG Vital Signs/I&O 07/29/20 10:42 Temp 36.1 Pulse 60 Resp 20 B/P (MAP) 190/82 (118) Pulse Ox 97 O2 Delivery Room Air Blood Pressure Mean: 118 Progress Progress Note : Progress Note Seen and evaluated. IV by EMS. Labs, EKG and chest x-ray ordered. ASA 324 mg p.o. ordered. Hydralazine 10 mg IV ordered. Monitor patient. 1211: Labs reviewed. Patient's blood pressure 160s systolic now and she states she feels a little better although feels just a little funny in her head. I did discuss with her more regarding any recent falls and she states that she has not had one recently but then admits a few weeks ago she did fall and hit her head. We will go ahead and get CT scan of her head without contrast now. Myoglobin was sligh tly elevated and we will recheck that at the 2-hour kareen as well as troponin given her chest pressure concerns earlier. All of this was discussed with the patient who agrees. Monitor patient. 1400: Repeat troponin and myoglobin negative and/or improved. Patient is otherwise doing okay. She was able to walk but was a little unsteady. Patient states this is her normal steadiness and has no concerns currently. Blood pressure has returned to an elevated state. She states this is after talking to her [id number] but seems to be remaining elevated. Hydralazine 10 mg IV ordered. I did discuss the case with Dr. Varela. We will initiate outpatient treatment of doubling her carvedilol to 12.5 mg twice daily. This was discussed with the patient who agrees. She states she feels very comfortable going home and would like to go home. She does have a walker at home that she can use to assist with balance. Discharged home with return precautions. Patient verbalized understanding of instructions and agreement with plan. I will send a copy of the chart to her PCP and to the morning news producer. Initial ECG Impression Date: Jul 29, 2020 Initial ECG Impression Time: 10:51 Initial ECG Rate: 56 Initial ECG Rhythm: Normal Sinus Comment Sinus rhythm with normal axis. No evidence of ST elevation [place]. Left ventricular hypertrophy. Similar to previous of 04/09/2016. Interpreted by me. Diagnostic Imaging Diagonstic Imaging: Xray Plain Films/CT/US/NM/MRI: chest Comments [facility] [place] [place] NAME: MELODY PRATER [facility] REC#: [id number] PT STATUS: REG ER : 1930 PHYSICIAN: MARQUIS GANDHI MD ADMIT DATE: 07/29/20/ER Draft Date of Exam:07/29/20 CHEST 1 VIEW, AP/PA ONLY INDICATION: Chest pain. Comparison made with prior examination from 04/09/2016. FINDINGS: The heart size, mediastinal configuration, and pulmonary vascularity are within normal limits. There is no pleural effusion, pneumothorax, or pneumonia. The osseous structures are unremarkable. IMPRESSION: No acute cardiopulmonary abnormality. Dictated on workstation # [id number] Dict: 07/29/20 1123 Trans: 07/29/20 1130 NIVIA [id number] Interpreted by: TIANNA AVERY MD Electronically signed by: [facility]: CT Plain Films/CT/US/NM/MRI: head Comments [facility] [place] [place] NAME: MELODY PRATER [facility] REC#: [id number] PT STATUS: REG ER : 1930 PHYSICIAN: MARQUIS GANDHI MD ADMIT DATE: 07/29/20/ER Draft Date of Exam:07/29/20 CT HEAD WO PROCEDURE: CT head without contrast. TECHNIQUE: Multiple contiguous axial images were obtained through the brain without the use of intravenous contrast. Auto Exposure Controls were utilized during the CT exam to meet ALARA standards for radiation dose reduction. INDICATION: Dizziness and chest heaviness. Comparison made with prior examination from 06/20/2016. FINDINGS: There is prominence of the ventricles and sulci. There is no hydrocephalus or cerebral edema. There is no midline shift or mass-effect. There is no intracranial mass, hemorrhage, or extra-axial fluid collection. There is some diffuse decreased attenuation of the periventricular white matter which is nonspecific. The visualized paranasal sinuses and mastoid air cells are clear. There are no regional areas of decreased attenuation appreciated to suggest an acute CVA. IMPRESSION: 1. No acute intracranial process. 2. Age-appropriate atrophy. 3. Decreased attenuation of the periventricular white matter which is nonspecific, however, likely reflects senescent change and/or chronic small vessel ischemic disease. Dictated on workstation # [id number] Dict: 07/29/20 1225 Trans: 07/29/20 1243 NIVIA [id number] Interpreted by: TIANNA AVERY MD Electronically signed by: Departure Impression Primary Impression: Uncontrolled hypertension Additional Impression: Dizziness Disposition: 01 HOME, SELF-CARE Condition: Stable Departure-Patient Inst. Decision time for Depature: 14:05 Referrals: NO,LOCAL PHYSICIAN (PCP/Family) Primary Care Physician Patient Instructions: High Blood Pressure (DC), Dizziness, Adult ED Add. Discharge Instructions: All discharge instructions reviewed with patient and/or family. Voiced understanding. You should take your medicines as directed. Increase your carvedilol to 2 tablets twice daily starting tonight. Call Dr. Varela's office in the morning for appointment within the next week for recheck of your blood pressures. You should monitor and record your blood pressures at least daily. Take that log with you to your appointment. Return for increasing weakness, shortness of breath, chest pain, nausea, vomiting, sweating, uncontrolled blood pressures or other concerns as needed. Avoid salt in your diet. Copy Copies To 1: RAY VARELA MD Copies To 2: TITO FUENTES MD, TIMOTHY D MD Jul 29, 2020 11:31
--- NOTE | 2020-07-29 12:44 | Diagnostic Imaging Report ---
PROCEDURE: CT head without contrast. TECHNIQUE: Multiple contiguous axial images were obtained through the brain without the use of intravenous contrast. Auto Exposure Controls were utilized during the CT exam to meet ALARA standards for radiation dose reduction. INDICATION: Dizziness and chest heaviness. Comparison made with prior examination from 06/20/2016. FINDINGS: There is prominence of the ventricles and sulci. There is no hydrocephalus or cerebral edema. There is no midline shift or mass-effect. There is no intracranial mass, hemorrhage, or extra-axial fluid collection. There is some diffuse decreased attenuation of the periventricular white matter which is nonspecific. The visualized paranasal sinuses and mastoid air cells are clear. There are no regional areas of decreased attenuation appreciated to suggest an acute CVA. IMPRESSION: 1. No acute intracranial process. 2. Age-appropriate atrophy. 3. Decreased attenuation of the periventricular white matter which is nonspecific, however, likely reflects senescent change and/or chronic small vessel ischemic disease. Dictated by: Dictated on workstation # [id number]
[2020-07-29] MEDS ORDERED: hydrALAZINE (APESOLINE) 20 MG/ML VIAL ONE (13:52)
[2020-07-29 14:15] VITALS: BP 133/57
== END 2020-07-29 14:29 | disposition home or self-care (01) ==
LOC: EDUNIT# 10:40 → ER 10:42
DX: I10 Essential (primary) hypertension (principal); R42 Dizziness and giddiness; E78.00 Pure hypercholesterolemia, unspecified; E03.9 Hypothyroidism, unspecified; F32.9 Major depressive disorder, single episode, unspecified; Z88.0 Allergy status to penicillin; Z88.2 Allergy status to sulfonamides; Z91.041 Radiographic dye allergy status; Z88.8 Allergy status to other drugs, medicaments and biological substances; Z82.49 Family history of ischemic heart disease and other diseases of the circulatory system; Z79.890 Hormone replacement therapy
CPT/HCPCS: 36415; 70450; 71045; 80053; 83735; 83874; 84484; 85025; 85379; 85610; 85730; 93005; 93041; 96374; 96376

== ENCOUNTER → 2020-08-07 | Outpatient (CLI) | payer MEDICARE, OTHER ==
[~2020-08-07] MED LIST changes: +CATHETER FLUSH 10 ML SYR IV PRN; +HOLD METFORMIN - RECEIVED CONTRAST 20 ML VIAL IV SCH; +IOHEXOL 350 MG/ML 100 ML (OMNIPAQUE 350) VIAL IV ONE; +NS 100 ML (IVPB) BAG IV ONE
--- NOTE | 2020-08-07 10:36 | Diagnostic Imaging Report ---
PROCEDURE: CT angiography of the head and CT angiography of the neck with and without contrast. TECHNIQUE: Contiguous noncontrast images were obtained from the skull base through the vertex. After intravenous contrast administration, helical CT angiography of the neck was performed. Source data was reformatted into 3D MIP projections. Delayed post contrast acquisition was also obtained. Auto Exposure Controls were utilized during the CT exam to meet ALARA standards for radiation dose reduction. INDICATION: Carotid stenosis. COMPARISON: Head CT is compared to 07/29/2020. FINDINGS: HEAD: Cerebral cortical volume is stable with only mild atrophy. No edema, hemorrhage, mass, or mass effect. The delayed post contrast enhanced images show enhancement of the major dural venous sinuses with no abnormal parenchymal or meningeal enhancement. CT ANGIO NECK: Aortic arch is unremarkable. The branching pattern of the great vessels is unremarkable. The cervical vertebral arteries are patent and codominant. There are dense extensive calcified plaques at the carotid bulbs and bifurcations extending into the proximal ICAs and ECAs bilaterally. On the right, this results in about 50% stenosis of the proximal ICA and about 70% stenosis of the takeoff of the external carotid. The mid to distal thirds of the right cervical carotid are widely patent, nonfocal, and unremarkable. On the left, dense plaque results in about 20-30% narrowing of the lumen of the carotid bulb. The proximal left ICA is stenosed by maybe 30-40%. The remaining mid to distal third of the left cervical internal carotid is widely patent. There is about 50% stenosis of the takeoff of the left external carotid. CT ANGIO HEAD: The intradural vertebral arteries, basilar, and the bilateral [employer] segments are unremarkable. The intracranial ICAs show non-stenosing calcified plaques eccentrically at the cavernous segments of the carotids. There is stenosis of the right greater than left ophthalmic segments of the intracranial ICAs, right probably 60-70% and the left about 50% owing to soft plaque. The left A1 segment is dominant with the right atretic. The ACOM is patent and the paired anterior cerebral arteries are unremarkable. There is some mild diffuse atherosclerotic disease in the M1 and M2 segments bilaterally. The middle cerebral arteries and their primary branches, however, show no significant stenosis. There is no thrombus or large vessel occlusion. No aneurysm or vascular malformation. 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 No large vessel occlusion, thrombus, aneurysm, or vascular malformation and no acute appearing abnormality is identified. Dictated by: Dictated on workstation # [id number]
== END ==
LOC: CARD 08:50
PROVIDERS: ATTEND Internal Medicine Cardiovascular Disease
DX: I08.3 Combined rheumatic disorders of mitral, aortic and tricuspid valves (principal); I65.23 Occlusion and stenosis of bilateral carotid arteries; I11.9 Hypertensive heart disease without heart failure
CPT/HCPCS: 70496; 70498; 93306